=== PATIENT | male | born 1975 | race Caucasian/White ===

== ENCOUNTER 2021-06-03 08:43 | Outpatient (CLI) | payer BC | END 2021-06-03 08:44 | disposition home or self-care (01) | LOC: CSHWCC 08:43 | PROVIDERS: ATTEND Nurse Practitioner Family | DX: L89.622 Pressure ulcer of left heel, stage 2 (principal); L89.892 Pressure ulcer of other site, stage 2; L89.40 Pressure ulcer of contiguous site of back, buttock and hip, unspecified stage; I87.2 Venous insufficiency (chronic) (peripheral); G82.50 Quadriplegia, unspecified; R60.0 Localized edema; V10.0XXD Pedal cycle driver injured in collision with pedestrian or animal in nontraffic accident, subsequent encounter | CPT/HCPCS: 99213; G0463 ==

== ENCOUNTER 2021-10-26 09:40 | Outpatient (CLI) | payer BC | END 2021-10-26 09:41 | disposition home or self-care (01) | LOC: CSHWCC 09:40 | PROVIDERS: ATTEND Nurse Practitioner Family | DX: L89.319 Pressure ulcer of right buttock, unspecified stage (principal) | CPT/HCPCS: 11042; 87070; 87205; 97605 ==

== ENCOUNTER 2021-11-09 10:43 | Outpatient (CLI) | payer BC | END 2021-11-09 10:44 | disposition home or self-care (01) | LOC: CSHWCC 10:43 | PROVIDERS: ATTEND Nurse Practitioner Family | DX: L89.40 Pressure ulcer of contiguous site of back, buttock and hip, unspecified stage (principal) | CPT/HCPCS: 99213; G0463 ==

== ENCOUNTER 2021-11-23 09:01 | Outpatient (CLI) | payer BC | END 2021-11-23 09:02 | disposition home or self-care (01) | LOC: CSHWCC 09:01 | PROVIDERS: ATTEND Nurse Practitioner Family | DX: L89.40 Pressure ulcer of contiguous site of back, buttock and hip, unspecified stage (principal) | CPT/HCPCS: 87070; 87077; 87205; 99213; G0463 ==

== ENCOUNTER 2021-11-23 10:51 | Outpatient (CLI) | payer BC | END 2021-11-23 10:52 | disposition home or self-care (01) | LOC: CSHRAD 10:51 | PROVIDERS: ATTEND Nurse Practitioner Family | DX: L89.40 Pressure ulcer of contiguous site of back, buttock and hip, unspecified stage (principal); M81.0 Age-related osteoporosis without current pathological fracture | CPT/HCPCS: 72170 ==

== ENCOUNTER 2021-12-07 08:48 | Outpatient (CLI) | payer BC | END 2021-12-07 08:49 | disposition home or self-care (01) | LOC: CSHWCC 08:48 | PROVIDERS: ATTEND Nurse Practitioner Family | DX: L89.40 Pressure ulcer of contiguous site of back, buttock and hip, unspecified stage (principal) | CPT/HCPCS: 11042; 87070; 87077; 87186; 87205 ==

== ENCOUNTER 2021-12-16 12:47 | Outpatient (CLI) | payer BC | END 2021-12-16 12:48 | disposition home or self-care (01) | LOC: CSHWCC 12:47 | PROVIDERS: ATTEND Nurse Practitioner Family | DX: L89.40 Pressure ulcer of contiguous site of back, buttock and hip, unspecified stage (principal) | CPT/HCPCS: 11042; 97605; 99211; G0463 ==

== ENCOUNTER 2021-12-18 08:21 | Outpatient (CLI) | payer BC | END 2021-12-18 08:22 | disposition home or self-care (01) | LOC: CSHWCC 08:21 | PROVIDERS: ATTEND Nurse Practitioner Family | DX: L89.40 Pressure ulcer of contiguous site of back, buttock and hip, unspecified stage (principal) | CPT/HCPCS: 97605 ==

== ENCOUNTER 2021-12-21 14:56 | Outpatient (CLI) | payer BC | END 2021-12-21 14:57 | disposition home or self-care (01) | LOC: CSHWCC 14:56 | PROVIDERS: ATTEND Nurse Practitioner Family | DX: L89.40 Pressure ulcer of contiguous site of back, buttock and hip, unspecified stage (principal) | CPT/HCPCS: 97605 ==

== ENCOUNTER 2021-12-24 13:05 | Outpatient (CLI) | payer BC | END 2021-12-24 13:06 | disposition home or self-care (01) | LOC: CSHWCC 13:05 | PROVIDERS: ATTEND Nurse Practitioner Family | DX: L89.40 Pressure ulcer of contiguous site of back, buttock and hip, unspecified stage (principal) | CPT/HCPCS: 97605 ==

== ENCOUNTER 2021-12-28 15:09 | Outpatient (CLI) | payer BC | END 2021-12-28 15:10 | disposition home or self-care (01) | LOC: CSHWCC 15:09 | PROVIDERS: ATTEND Nurse Practitioner Family | DX: L89.40 Pressure ulcer of contiguous site of back, buttock and hip, unspecified stage (principal) | CPT/HCPCS: 97605 ==

== ENCOUNTER 2021-12-31 13:52 | Outpatient (CLI) | payer BC | END 2021-12-31 13:53 | disposition home or self-care (01) | LOC: CSHWCC 13:52 | PROVIDERS: ATTEND Nurse Practitioner Family | DX: L89.40 Pressure ulcer of contiguous site of back, buttock and hip, unspecified stage (principal) | CPT/HCPCS: 97605 ==

== ENCOUNTER 2022-01-04 07:50 | Outpatient (CLI) | payer BC | END 2022-01-04 07:51 | disposition home or self-care (01) | LOC: CSHWCC 07:50 | PROVIDERS: ATTEND Nurse Practitioner Family | DX: L89.40 Pressure ulcer of contiguous site of back, buttock and hip, unspecified stage (principal) | CPT/HCPCS: 97605; G0277 ==

== ENCOUNTER 2022-01-05 09:44 | Outpatient (CLI) | payer BC | END 2022-01-05 09:45 | disposition home or self-care (01) | LOC: CSHWCC 09:44 | PROVIDERS: ATTEND Nurse Practitioner Family | DX: M86.18 Other acute osteomyelitis, other site (principal) | CPT/HCPCS: G0277 ==

== ENCOUNTER 2022-01-06 10:46 | Outpatient (CLI) | payer BC | END 2022-01-06 10:47 | disposition home or self-care (01) | LOC: CSHWCC 10:46 | PROVIDERS: ATTEND Nurse Practitioner Family | DX: L89.40 Pressure ulcer of contiguous site of back, buttock and hip, unspecified stage (principal); M86.18 Other acute osteomyelitis, other site ==

== ENCOUNTER 2022-01-07 08:01 | Outpatient (CLI) | payer BC | END 2022-01-07 08:02 | disposition home or self-care (01) | LOC: CSHWCC 08:01 | PROVIDERS: ATTEND Nurse Practitioner Family | DX: M86.18 Other acute osteomyelitis, other site (principal) ==

== ENCOUNTER 2022-01-08 11:10 | Outpatient (CLI) | payer BC | END 2022-01-08 11:11 | disposition home or self-care (01) | LOC: CSHWCC 11:10 | PROVIDERS: ATTEND Nurse Practitioner Family | DX: M86.18 Other acute osteomyelitis, other site (principal) | CPT/HCPCS: G0277 ==

== ENCOUNTER 2022-01-11 10:46 | Outpatient (CLI) | payer BC | END 2022-01-11 10:47 | disposition home or self-care (01) | LOC: CSHWCC 10:46 | PROVIDERS: ATTEND Nurse Practitioner Family | DX: M86.18 Other acute osteomyelitis, other site (principal) | CPT/HCPCS: 11045; 97605; G0277 ==

== ENCOUNTER 2022-01-12 11:04 | Outpatient (CLI) | payer BC | END 2022-01-12 11:05 | disposition home or self-care (01) | LOC: CSHWCC 11:04 | PROVIDERS: ATTEND Nurse Practitioner Family | DX: M86.18 Other acute osteomyelitis, other site (principal) | CPT/HCPCS: G0277 ==

== ENCOUNTER 2022-01-13 11:06 | Outpatient (CLI) | payer BC | END 2022-01-13 11:07 | disposition home or self-care (01) | LOC: CSHWCC 11:06 | PROVIDERS: ATTEND Nurse Practitioner Family | DX: L89.40 Pressure ulcer of contiguous site of back, buttock and hip, unspecified stage (principal); M86.18 Other acute osteomyelitis, other site | CPT/HCPCS: G0277 ==

== ENCOUNTER 2022-01-14 15:18 | Outpatient (CLI) | payer BC | END 2022-01-14 15:19 | disposition home or self-care (01) | LOC: CSHWCC 15:18 | PROVIDERS: ATTEND Nurse Practitioner Family | DX: L89.40 Pressure ulcer of contiguous site of back, buttock and hip, unspecified stage (principal); M86.18 Other acute osteomyelitis, other site | CPT/HCPCS: 97605; G0277 ==

== ENCOUNTER 2022-01-19 08:11 | Outpatient (CLI) | payer BC | END 2022-01-19 08:12 | disposition home or self-care (01) | LOC: CSHWCC 08:11 | PROVIDERS: ATTEND Nurse Practitioner Family | DX: L89.40 Pressure ulcer of contiguous site of back, buttock and hip, unspecified stage (principal); M86.18 Other acute osteomyelitis, other site ==

== ENCOUNTER → 2022-01-20 | Outpatient (CLI) | payer BC | LOC: CSHWCC 03:00 | PROVIDERS: ATTEND Nurse Practitioner Family | DX: L89.40 Pressure ulcer of contiguous site of back, buttock and hip, unspecified stage (principal); M86.18 Other acute osteomyelitis, other site | CPT/HCPCS: G0277 ==

== ENCOUNTER 2022-01-21 08:04 | Outpatient (CLI) | payer BC | END 2022-01-21 08:05 | disposition home or self-care (01) | LOC: CSHWCC 08:04 | PROVIDERS: ATTEND Nurse Practitioner Family | DX: L89.40 Pressure ulcer of contiguous site of back, buttock and hip, unspecified stage (principal); M86.18 Other acute osteomyelitis, other site ==

== ENCOUNTER 2022-01-22 08:50 | Outpatient (CLI) | payer BC | END 2022-01-22 08:51 | disposition home or self-care (01) | LOC: CSHWCC 08:50 | PROVIDERS: ATTEND Nurse Practitioner Family | DX: L89.40 Pressure ulcer of contiguous site of back, buttock and hip, unspecified stage (principal) ==

== ENCOUNTER 2022-01-25 08:28 | Outpatient (CLI) | payer BC | END 2022-01-25 08:29 | disposition home or self-care (01) | LOC: CSHWCC 08:28 | PROVIDERS: ATTEND Nurse Practitioner Family | DX: L89.40 Pressure ulcer of contiguous site of back, buttock and hip, unspecified stage (principal); M86.18 Other acute osteomyelitis, other site ==

== ENCOUNTER 2022-01-26 10:33 | Outpatient (CLI) | payer BC | END 2022-01-26 10:34 | disposition home or self-care (01) | LOC: CSHWCC 10:33 | PROVIDERS: ATTEND Nurse Practitioner Family | DX: L89.40 Pressure ulcer of contiguous site of back, buttock and hip, unspecified stage (principal); M86.18 Other acute osteomyelitis, other site ==

== ENCOUNTER 2022-02-05 08:04 | Outpatient (CLI) | payer BC | END 2022-02-05 08:05 | disposition home or self-care (01) | LOC: CSHWCC 08:04 | PROVIDERS: ATTEND Nurse Practitioner Family | DX: L89.40 Pressure ulcer of contiguous site of back, buttock and hip, unspecified stage (principal) | CPT/HCPCS: 97605; 99211; G0463 ==

== ENCOUNTER 2022-02-08 10:32 | Outpatient (CLI) | payer BC | END 2022-02-08 10:33 | disposition home or self-care (01) | LOC: CSHWCC 10:32 | PROVIDERS: ATTEND Nurse Practitioner Family | DX: L89.40 Pressure ulcer of contiguous site of back, buttock and hip, unspecified stage (principal) ==

== ENCOUNTER 2022-02-11 08:03 | Outpatient (CLI) | payer BC | END 2022-02-11 08:04 | disposition home or self-care (01) | LOC: CSHWCC 08:03 | PROVIDERS: ATTEND Nurse Practitioner Family | DX: M86.18 Other acute osteomyelitis, other site (principal) ==

== ENCOUNTER 2022-02-15 08:05 | Outpatient (CLI) | payer BC | END 2022-02-15 08:06 | disposition home or self-care (01) | LOC: CSHWCC 08:05 | PROVIDERS: ATTEND Nurse Practitioner Family | DX: L89.40 Pressure ulcer of contiguous site of back, buttock and hip, unspecified stage (principal) | CPT/HCPCS: 97605 ==

== ENCOUNTER 2022-02-18 08:27 | Outpatient (CLI) | payer BC | END 2022-02-18 08:28 | disposition home or self-care (01) | LOC: CSHWCC 08:27 | PROVIDERS: ATTEND Nurse Practitioner Family | DX: L89.40 Pressure ulcer of contiguous site of back, buttock and hip, unspecified stage (principal) | CPT/HCPCS: 97605 ==

== ENCOUNTER 2022-03-25 13:45 | Outpatient (CLI) | payer BC ==
[2022-03-25] MEDS ORDERED: Magnevist 469MG/ML 20 ML VIAL ONE (15:35)
== END 2022-03-25 13:46 | disposition home or self-care (01) ==
LOC: CSHMRI 13:45
PROVIDERS: ATTEND Nurse Practitioner Family
DX: L89.40 Pressure ulcer of contiguous site of back, buttock and hip, unspecified stage (principal); M86.9 Osteomyelitis, unspecified
CPT/HCPCS: 72197; A9579